=== PATIENT | male | born 2000 | race Caucasian/White ===

== ENCOUNTER → 2023-03-26 09:04 | Outpatient (BNVA) | payer OTHER, SELFPAY | PROVIDERS: Visit Provider Nurse Practitioner Family | DX: R10.13 Epigastric pain (principal); K21.9 Gastro-esophageal reflux disease without esophagitis | CPT/HCPCS: 80053; 85025; 86677 ==

== ENCOUNTER → 2023-11-01 09:01 | Outpatient (BNVA) | payer OTHER, SELFPAY | PROVIDERS: PCP Nurse Practitioner Family; Visit Provider Nurse Practitioner Family | DX: S29.9XXA Unspecified injury of thorax, initial encounter (principal); R07.89 Other chest pain; R52 Pain, unspecified; R05.9 Cough, unspecified; X58.XXXA Exposure to other specified factors, initial encounter | CPT/HCPCS: 71046 ==